=== PATIENT | male | born 1960 | race Caucasian/White ===

== ENCOUNTER 2020-01-21 15:51 | Outpatient (REF) | payer MEDICAID, SELFPAY ==
[2020-01-21 22:45] LABS: Anion Gap 8.1 mmol/L (3-11); BUN 16 mg/dL (7-18); CO2 26.9 mmol/L (21.0-32.0); CREATININE 1.27 mg/dL (0.70-1.30); Calcium 9.5 mg/dL (8.5-10.1); Chloride 107 mmol/L (98-107); Estimated GFR 58.05 (mL/min/1.73m2); Glucose 96 mg/dL (74-106); Potassium 4.4 mmol/L (3.5-5.1); Sodium 142 mmol/L (136-145); TSH (W/Ref FT4) 0.54 uIU/mL (0.36-3.74)
== END 2020-01-21 16:11 ==
LOC: NCHCN 15:51
PROVIDERS: Visit Provider Nurse Practitioner Family
DX: E03.9 Hypothyroidism, unspecified (principal); N18.30 Chronic kidney disease, stage 3 unspecified
CPT/HCPCS: 80048; 84443

== ENCOUNTER 2020-03-03 15:16 | Outpatient (REF) | payer MEDICAID, SELFPAY ==
[2020-03-03 22:07] LABS: ALT 26 U/L (16-63); AST 16 U/L (15-37); Calculated LDL 130 mg/dL (<100); Cholesterol 193 mg/dL (<200); HDL Cholesterol 47 mg/dL (40-60); Triglyceride 84 mg/dL (<150)
[2020-03-04 04:46] LABS: Vitamin D 25 Total 56.2 ng/ml (30-100)
== END 2020-03-03 15:36 ==
LOC: NCHCN 15:16
PROVIDERS: PCP Nurse Practitioner Family; Visit Provider Nurse Practitioner Family
DX: Z13.220 Encounter for screening for lipoid disorders (principal); Z13.21 Encounter for screening for nutritional disorder; Z00.00 Encounter for general adult medical examination without abnormal findings
CPT/HCPCS: 80061; 82306; 84450; 84460

== ENCOUNTER 2020-12-14 12:46 | Outpatient (REF) | payer MEDICAID, SELFPAY ==
[2020-12-14 22:20] LABS: HCT 42.6 % (40.0-50.0); MCH 31.7 pg (27.0-33.0); MCHC 32.9 % (32.0-36.0); MCV 96.4 fL (80-95); MPV 10.6 fL (8.0-11.0); Platelet Count 365 10^3/uL (130-400); RBC 4.42 10^6/uL (4.36-5.78); RDW-SD 42.4 fL; WBC 8.13 10^3/uL (4.4-10.8)
[2020-12-14 23:15] LABS: ALT 25 U/L (16-63); AST 14 U/L (15-37); Alkaline Phosphatase 92 U/L (46-116); Anion Gap 6.8 mmol/L (3-11); BUN 17 mg/dL (7-18); Bilirubin, Total 0.4 mg/dL (0.2-1.0); CO2 30.2 mmol/L (21.0-32.0); CREATININE 1.3 mg/dL (0.70-1.30); Calcium 8.9 mg/dL (8.5-10.1); Chloride 106 mmol/L (98-107); Estimated GFR 56.31 (mL/min/1.73m2); Glucose 87 mg/dL (74-106); Potassium 4.7 mmol/L (3.5-5.1); Sodium 143 mmol/L (136-145); TSH 0.94 uIU/mL (0.36-3.74); Total Protein 6.5 g/dL (6.4-8.2); Vitamin B12 560 pg/mL (193-986)
[2020-12-14 23:42] LABS: Folate > 20.0 ng/mL (8.6-20.0)
[2020-12-16 00:35] LABS: Vitamin D 25 Total 56.5 ng/mL (30-100)
[2020-12-16 11:01] LABS: HIV-1/2 Ag & Ab Screen Negative (Negative)
[2020-12-18 16:31] LABS: Methylmalonic Acid 0.15 nmol/mL (<=0.40)
== END 2020-12-14 12:47 | disposition home or self-care (01) ==
LOC: NCHCN 12:46
PROVIDERS: PCP Nurse Practitioner Family; Visit Provider Nurse Practitioner Family
DX: R41.3 Other amnesia (principal); E03.9 Hypothyroidism, unspecified; E55.9 Vitamin D deficiency, unspecified; Z11.4 Encounter for screening for human immunodeficiency virus [HIV]
CPT/HCPCS: 80053; 80186; 82306; 85027; 87389; 82607; 82746; 84443